=== PATIENT | male | born 1975 | race Caucasian/White ===

== ENCOUNTER → 2018-02-20 | Outpatient (CLI) | payer OTHER | END | disposition home or self-care (01) | LOC: CFH 13:56 | PROVIDERS: ATTEND Family Medicine | DX: N63.42 Unspecified lump in left breast, subareolar (principal) | CPT/HCPCS: 77066 ==

== ENCOUNTER → 2018-02-21 | Outpatient (CLI) | payer OTHER ==
[~2018-02-21] MED LIST: LIDOCAINE 1%, 50ML ONE; LIDOCAINE 1%-EPI 1:100K, 50ML ONE; SODIUM BICARBONATE 4.2%, 5ML ONE
== END | disposition home or self-care (01) ==
LOC: CFH 06:43
PROVIDERS: ATTEND Family Medicine
DX: D05.12 Intraductal carcinoma in situ of left breast (principal)
CPT/HCPCS: 10022; 19083; 77065; 88305; J3490

== ENCOUNTER → 2018-02-26 | Outpatient (CLI) | payer OTHER ==
[~2018-02-26] MED LIST changes: -LIDOCAINE 1%, 50ML ONE; -LIDOCAINE 1%-EPI 1:100K, 50ML ONE; +OMNIPAQUE 350 MG/ML, 100ML BOTTLE ONE; -SODIUM BICARBONATE 4.2%, 5ML ONE
== END | disposition home or self-care (01) ==
LOC: CFH 10:13
PROVIDERS: ATTEND Family Medicine
DX: C50.922 Malignant neoplasm of unspecified site of left male breast (principal); R91.8 Other nonspecific abnormal finding of lung field; Z85.3 Personal history of malignant neoplasm of breast; Z98.890 Other specified postprocedural states
CPT/HCPCS: 71260; 74177; Q9967

== ENCOUNTER → 2018-02-27 | Outpatient (CLI) | payer OTHER | END | disposition home or self-care (01) | LOC: PETCFH 09:06 | PROVIDERS: ATTEND Family Medicine | DX: C50.922 Malignant neoplasm of unspecified site of left male breast (principal); Z98.890 Other specified postprocedural states | CPT/HCPCS: 78306; A9503 ==

== ENCOUNTER → 2018-03-06 | Outpatient (CLI) | payer OTHER | LOC: STAR 08:27 | PROVIDERS: ATTEND Surgery | DX: Z02.9 Encounter for administrative examinations, unspecified (principal) ==

== ENCOUNTER → 2018-03-06 | Outpatient (CLI) | payer OTHER | END | disposition home or self-care (01) | LOC: LAB 15:00 | PROVIDERS: ATTEND Family Medicine | DX: Z09 Encounter for follow-up examination after completed treatment for conditions other than malignant neoplasm (principal) | CPT/HCPCS: 36415; 87806; G0475 ==

== ENCOUNTER 2018-03-10 08:26 | Day surgery (SDC) | payer OTHER ==
[~2018-03-10] VITALS: Ht 175.3 cm; Wt 124.3 kg
[2018-03-10] MEDS ORDERED: OxyconTIN ER 20 MG TAB.ER PO ONE (09:00)
[2018-03-10] MEDS ORDERED: ACETAMINOPHEN 500 MG TABLET PO ONE (09:00)
[2018-03-10] MEDS ORDERED: GABAPENTIN 300 MG CAPSULE PO ONE (09:00)
[2018-03-10] MEDS ORDERED: ONDANSETRON ODT 8 MG PO ONE (09:00)
[2018-03-10] MEDS ORDERED: LACTATED RINGERS 1,000 ML IV SCH (09:06)
[2018-03-10 09:09] VITALS: BP 126/87
[2018-03-10] MEDS ORDERED: KETOROLAC 30 MG/1 ML ONE (10:24)
[2018-03-10] MEDS ORDERED: CEFAZOLIN 1,000 MG ONE (10:24)
[2018-03-10] MEDS ORDERED: MIDAZOLAM 1 MG/ML, 5ML ONE (10:24)
[2018-03-10] MEDS ORDERED: PROPOFOL 10 MG/ML, 20ML ONE (10:24)
[2018-03-10] MEDS ORDERED: DEXAMETHASONE 4 MG/ML, 1ML ONE (10:24)
[2018-03-10] MEDS ORDERED: FENTANYL PF 100 MCG/2ML ONE (10:24)
[2018-03-10] MEDS ORDERED: SUCCINYLCHOLINE 20 MG/ML, 10ML ONE (10:24)
[2018-03-10] MEDS ORDERED: ROCURONIUM 10MG/ML,5ML ONE (10:24)
[2018-03-10] MEDS ORDERED: ONDANSETRON ODT 8 MG PO PRN (11:00)
[2018-03-10] MEDS ORDERED: MEPERIDINE/PF 25MG/0.5ML IVPush PRN (11:00)
[2018-03-10] MEDS ORDERED: hydrALAzine 20 MG/ML, 1ML IV PRN (11:00)
[2018-03-10] MEDS ORDERED: MORPHINE SULFATE 4 MG/ML, 1ML IVPush PRN (11:00)
[2018-03-10] MEDS ORDERED: DIAZEPAM 5 MG/ML, 2ML IVPush PRN (11:00)
[2018-03-10] MEDS ORDERED: PROMETHAZINE 25 MG/ML, 1ML IV PRN (11:00)
[2018-03-10] MEDS ORDERED: HYDROmorphone 1 MG/ML, 1ML IV PRN (11:00)
[2018-03-10] MEDS ORDERED: ALBUTEROL/IPRATROPIUM 2.5MG/0.5MG, 3 ML NPPB PRN (11:00)
[2018-03-10] MEDS ORDERED: FENTANYL PF 100 MCG/2ML IV PRN (11:00)
[2018-03-10] MEDS ORDERED: METOCLOPRAMIDE 5 MG/ML, 2ML IV PRN (11:00)
[2018-03-10] MEDS ORDERED: PROMETHAZINE 25 MG SUPP PR PRN (11:00)
[2018-03-10] MEDS ORDERED: SCOPOLAMINE PATCH, 1.5MG PATCH.TD72 TD PRN (11:00)
[2018-03-10] MEDS ORDERED: OXYcodone 5 MG/5 ML ORAL.SOL UDC PO PRN (11:00)
[2018-03-10] MEDS ORDERED: LABETALOL 5MG/ML, 20ML IV PRN (11:00)
[2018-03-10] MEDS ORDERED: MIDAZOLAM 1 MG/ML, 2ML IV PRN (11:00)
[2018-03-10] MEDS ORDERED: EPHEDRINE 50 MG/ML, 1ML IM PRN (11:00)
[2018-03-10] MEDS ORDERED: OXYcodone 5 MG/5 ML ORAL.SOL UDC ONE (12:01)
== END 2018-03-10 15:00 ==
LOC: OUT 08:26
PROVIDERS: ATTEND Surgery
DX: C50.922 Malignant neoplasm of unspecified site of left male breast (principal); E66.9 Obesity, unspecified; Z98.890 Other specified postprocedural states
CPT/HCPCS: 19307; 88305; 88307; C1729; J0330; J0690; J1100; J1885; J2250; J2405; J2704; J3010; J3490; J7120; Q0162

== ENCOUNTER → 2018-03-13 | Outpatient (CLI) | payer OTHER | END | disposition home or self-care (01) | LOC: LAB 08:58 | PROVIDERS: ATTEND Family Medicine | DX: Z11.3 Encounter for screening for infections with a predominantly sexual mode of transmission (principal) | CPT/HCPCS: 36415; 80074 ==

== ENCOUNTER → 2018-04-07 | Outpatient (CLI) | payer OTHER ==
[2018-04-07 15:18] LABS: BASOPHILS # (AUTO) 0.03 x10^3/uL (0-0.1); BASOPHILS % (AUTO) 1 % (0-1); EOSINOPHILS # (AUTO) 0.05 x10^3/uL (0-0.4); EOSINOPHILS % (AUTO) 1 % (1-7); LYMPHOCYTES # (AUTO) 1.67 x10^3/uL (1-3.4); LYMPHOCYTES % (AUTO) 32 % (22-44); MD NO; MEAN CORPUSCULAR HEMOGLOBIN 27.9 pg (27.5-34.5); MEAN CORPUSCULAR HGB CONC 33.8 g/dL (33.2-36.2); MEAN CORPUSCULAR VOLUME 82.6 fL (81-97); MEAN PLATELET VOLUME 6.9 fL (7.4-10.4); MONOCYTES # (AUTO) 0.26 x10^3/uL (0.2-0.8); MONOCYTES % (AUTO) 5 % (2-9); NEUTROPHILS # (AUTO) 3.19 x10^3/uL (1.8-6.8); NEUTROPHILS % (AUTO) 61 % (42-75); PLATELET COUNT 220 x10^3/uL (130-400); RED BLOOD COUNT 5.85 x10^6/uL (4.38-5.82); RED CELL DISTRIBUTION WIDTH 13.3 % (9.4-14.8)
[2018-04-07 15:24] LABS: ALANINE AMINOTRANSFERASE 39 U/L (12-78); ALBUMIN 4.1 g/dL (3.4-5.0); ANION GAP 7 mmol/L (5-15); CALCIUM 8.4 mg/dL (8.5-10.1); CHLORIDE 108 mmol/L (98-107)
[2018-04-07 15:27] LABS: ALKALINE PHOSPHATASE 72 U/L (45-117); BILIRUBIN,TOTAL 0.6 mg/dL (0.2-1.0); CREATININE 1.64 mg/dL (0.7-1.3); TOTAL PROTEIN 7.4 g/dL (6.4-8.2)
== END | disposition home or self-care (01) ==
LOC: LAB 14:48
PROVIDERS: ATTEND Internal Medicine Hematology & Oncology
DX: C50.422 Malignant neoplasm of upper-outer quadrant of left male breast (principal)
CPT/HCPCS: 36415; 80053; 85025; 86300

== ENCOUNTER → 2018-04-08 | Outpatient (CLI) | payer OTHER | END | disposition home or self-care (01) | LOC: CVU 11:58 | PROVIDERS: ATTEND Internal Medicine Hematology & Oncology | DX: C50.422 Malignant neoplasm of upper-outer quadrant of left male breast (principal) | CPT/HCPCS: 0399T; 93306 ==

== ENCOUNTER 2018-04-14 06:47 | Day surgery (SDC) | payer OTHER ==
[~2018-04-14] VITALS: Ht 175.3 cm; Wt 121.7 kg
[~2018-04-14 06:47] MED LIST changes: +BUPIVACAINE/PF-EPI 0.5% 1:200K ONE; +HEPARIN 1,000 UNITS/ML, 10ML ONE; -OMNIPAQUE 350 MG/ML, 100ML BOTTLE ONE
[2018-04-14] MEDS ORDERED: LACTATED RINGERS 1,000 ML IV SCH (07:07)
[2018-04-14 07:21] VITALS: BP 125/81
[2018-04-14] MEDS ORDERED: FENTANYL PF 100 MCG/2ML ONE (07:42)
[2018-04-14] MEDS ORDERED: MIDAZOLAM 1 MG/ML, 2ML ONE ×2 (07:43→08:34)
[2018-04-14] MEDS ORDERED: CEFAZOLIN 1,000 MG ONE (08:30)
[2018-04-14] MEDS ORDERED: PROPOFOL 10 MG/ML, 50ML ONE (08:30)
[2018-04-14] MEDS ORDERED: BUPIVACAINE/PF-EPI 0.5% 1:200K INFIL ONE (08:53)
== END 2018-04-14 10:31 ==
LOC: OUT 06:47
PROVIDERS: ATTEND Surgery
DX: Z45.2 Encounter for adjustment and management of vascular access device (principal); C50.929 Malignant neoplasm of unspecified site of unspecified male breast; E66.9 Obesity, unspecified; Z98.890 Other specified postprocedural states; Z88.0 Allergy status to penicillin
CPT/HCPCS: 36561; 77001; C1788; J0690; J1644; J2250; J2704; J3010; J7120

== ENCOUNTER → 2018-06-09 | Outpatient (CLI) | payer OTHER ==
[2018-06-09 12:34] LABS: ALBUMIN 3.8 g/dL (3.4-5.0); ANION GAP 6 mmol/L (5-15); CALCIUM 8.5 mg/dL (8.5-10.1); CHLORIDE 109 mmol/L (98-107)
[2018-06-09 12:38] LABS: ALANINE AMINOTRANSFERASE 41 U/L (12-78); ALKALINE PHOSPHATASE 107 U/L (45-117); BILIRUBIN,TOTAL 0.4 mg/dL (0.2-1.0); CREATININE 0.97 mg/dL (0.7-1.3); TOTAL PROTEIN 7.4 g/dL (6.4-8.2)
== END | disposition home or self-care (01) ==
LOC: LAB 12:10
PROVIDERS: ATTEND Internal Medicine Hematology & Oncology
DX: C50.422 Malignant neoplasm of upper-outer quadrant of left male breast (principal); D70.1 Agranulocytosis secondary to cancer chemotherapy; Z88.0 Allergy status to penicillin
CPT/HCPCS: 36415; 80053

== ENCOUNTER 2018-07-05 16:55 | Inpatient (IN) | payer OTHER ==
[~2018-07-05] VITALS: Ht 175.3 cm; Wt 118.3 kg
[2018-07-05] MEDS ORDERED: OMNIPAQUE 350 MG/ML, 100ML BOTTLE ONE (18:00)
[2018-07-05] MEDS ORDERED: SODIUM CHLORIDE FLUSH 10ML SYR IVF ONE ×2 (18:00→21:30)
[2018-07-05 18:30] LABS: MEAN CORPUSCULAR HEMOGLOBIN 29.3 pg (27.5-34.5); MEAN CORPUSCULAR HGB CONC 34.1 g/dL (33.2-36.2); MEAN CORPUSCULAR VOLUME 85.8 fL (81-97); MEAN PLATELET VOLUME 6.8 fL (7.4-10.4); PLATELET COUNT 226 x10^3/uL (130-400); RED BLOOD COUNT 3.88 x10^6/uL (4.38-5.82)
[2018-07-05 18:34] LABS: ALBUMIN 3.4 g/dL (3.4-5.0); ANION GAP 9 mmol/L (5-15); CHLORIDE 108 mmol/L (98-107); CREATININE 0.86 mg/dL (0.7-1.3)
[2018-07-05 18:46] LABS: MD YES
[2018-07-05 18:48] LABS: ANISOCYTOSIS 1+; BAND#(MANUAL) 1.24 x10^3/uL; BANDS%(MANUAL) 6 % (0-7); LYMPH#(MANUAL) 1.65 x10^3/uL (1-3.4); LYMPHS% (MANUAL) 8 % (22-44); MONOS#(MANUAL) 1.03 x10^3/uL (0.3-2.7); MONOS% (MANUAL) 5 % (2-9); MYELOCYTES# (MANUAL) 0.41 x10^3/uL (0-0); MYELOCYTES% (MANUAL) 2 % (0-0); SEG#(MANUAL) 16.27 x10^3/uL (1.8-6.8); SEGS% (MANUAL) 79 % (42-75)
[2018-07-05 18:49] LABS: POLYCHROMASIA 1+
[2018-07-05 18:51] LABS: <PLATELET ESTIMATE> ADEQUATE; <PLT MORPHOLOGY> NORMAL PLT MORPH; TOXIC GRAN 1+
[2018-07-05] MEDS ORDERED: SODIUM CHLORIDE 0.9% 1,000ML IVBOLUS ONE (21:30)
[2018-07-05] MEDS ORDERED: VANCOMYCIN PER PHARMACY MC ONE (21:30)
[2018-07-05] MEDS ORDERED: PIPERACILLIN/TAZO/PMX 3.375GM 50 ML IVPB ONE (21:30)
[2018-07-05] MEDS ORDERED: PHARMACOKINETIC CONSULTATION MC ONE (21:30)
[2018-07-05] MEDS ORDERED: VANCOMYCIN 2,000 MG in SODIUM CHLORIDE 0.9% 500 ML IV ONE (22:00)
[2018-07-05] MEDS ORDERED: PIPERACILLIN/TAZO/PMX 3.375GM 50 ML ONE (22:00)
[2018-07-05] MEDS ORDERED: NS + 20MEQ KCL 1,000 ML IV SCH (22:16)
[2018-07-05] MEDS: PIPERACILLIN/TAZO/PMX 3.375GM 50 ML IV SCH (22:30)
[2018-07-05] MEDS ORDERED: VANCOMYCIN PER PHARMACY MC PRN (22:30)
[2018-07-05] MEDS ORDERED: ACETAMINOPHEN 325 MG TABLET PO PRN (22:30)
[2018-07-05] MEDS ORDERED: HEPARIN 5,000 UNITS/ML, 1ML IV PRN (22:30)
[2018-07-05] MEDS ORDERED: DOCUSATE 100 MG CAPSULE PO PRN (22:30)
[2018-07-05] MEDS ORDERED: morphine SULFATE 10 MG/ML, 1ML IVPush PRN (22:30)
[2018-07-05] MEDS ORDERED: HEPARIN 5,000 UNITS/ML, 1ML IV ONE (22:30)
[2018-07-05] MEDS ORDERED: POLYETHYLENE GLYCOL 17 GM PACKET PO PRN (22:30)
[2018-07-05] MEDS ORDERED: ONDANSETRON 2MG/ML, 2ML IVPush PRN (22:30)
[2018-07-05] MEDS ORDERED: HYDROcodone/APAP 5/325 TABLET PO PRN (22:30)
[2018-07-05] MEDS ORDERED: HEPARIN 25,000 UNITS/500ML PMX 500 ML IV PRN (22:30)
[2018-07-05 23:51] VITALS: BP 151/93
[2018-07-06] MEDS ORDERED: PHARMACOKINETIC CONSULTATION MC ONE (00:30)
[2018-07-06] MEDS ORDERED: PHARMACOKINETIC MONITORING MC PRN (00:30)
[2018-07-06] MEDS ORDERED: VANCOMYCIN 2,200 MG in SODIUM CHLORIDE 0.9% 500 ML IV SCH (00:30)
[2018-07-06 01:52] VITALS: BP 118/95
[2018-07-06 05:20] LABS: BASOPHILS % (AUTO) 0 % (0-1); EOSINOPHILS # (AUTO) 0.02 x10^3/uL (0-0.4); EOSINOPHILS % (AUTO) 0 % (1-7); LYMPHOCYTES # (AUTO) 1.11 x10^3/uL (1-3.4); LYMPHOCYTES % (AUTO) 7 % (22-44); MD NO; MEAN CORPUSCULAR HEMOGLOBIN 29.5 pg (27.5-34.5); MEAN CORPUSCULAR VOLUME 86.6 fL (81-97); MONOCYTES # (AUTO) 0.59 x10^3/uL (0.2-0.8); MONOCYTES % (AUTO) 4 % (2-9); NEUTROPHILS # (AUTO) 14.79 x10^3/uL (1.8-6.8); NEUTROPHILS % (AUTO) 90 % (42-75); PLATELET COUNT 184 x10^3/uL (130-400); RED BLOOD COUNT 3.45 x10^6/uL (4.38-5.82)
[2018-07-06 05:35] LABS: ANION GAP 8 mmol/L (5-15); CALCIUM 7.6 mg/dL (8.5-10.1); CHLORIDE 111 mmol/L (98-107); CREATININE 0.84 mg/dL (0.7-1.3)
[2018-07-06] MEDS: PIPERACILLIN/TAZO/PMX 3.375GM 50 ML IV SCH (05:42)
[2018-07-06 07:12] VITALS: BP 124/66
[2018-07-06] MEDS: IBUPROFEN 600 MG TABLET PO PRN ×2 (08:50→19:53)
[2018-07-06 10:25] LABS: CLOSTRIDIUM DIFFICILE ANTIGEN POSITIVE; CLOSTRIDIUM DIFFICILE TOXIN POSITIVE (Negative)
[2018-07-06 12:04] VITALS: BP 138/70
[2018-07-06] MEDS: VANCOMYCIN 50 MG/ML ORAL SUSP PO SCH ×2 (12:05→16:48)
[2018-07-06] MEDS: ENOXAPARIN 120MG/0.8ML SQ SCH (14:16)
[2018-07-06 19:21] VITALS: BP 111/68
[2018-07-07] MEDS: ENOXAPARIN 120MG/0.8ML SQ SCH ×2 (00:49→11:51)
[2018-07-07] MEDS: VANCOMYCIN 50 MG/ML ORAL SUSP PO SCH ×4 (00:50→16:57)
[2018-07-07 00:51] VITALS: BP 123/72
[2018-07-07 05:20] LABS: BASOPHILS # (AUTO) 0.01 x10^3/uL (0-0.1); BASOPHILS % (AUTO) 0 % (0-1); EOSINOPHILS # (AUTO) 0.05 x10^3/uL (0-0.4); EOSINOPHILS % (AUTO) 1 % (1-7); LYMPHOCYTES # (AUTO) 0.97 x10^3/uL (1-3.4); LYMPHOCYTES % (AUTO) 9 % (22-44); MD NO; MEAN CORPUSCULAR HEMOGLOBIN 29.7 pg (27.5-34.5); MEAN CORPUSCULAR HGB CONC 34.4 g/dL (33.2-36.2); MEAN CORPUSCULAR VOLUME 86.4 fL (81-97); MEAN PLATELET VOLUME 6.8 fL (7.4-10.4); MONOCYTES # (AUTO) 0.44 x10^3/uL (0.2-0.8); MONOCYTES % (AUTO) 4 % (2-9); NEUTROPHILS # (AUTO) 8.86 x10^3/uL (1.8-6.8); NEUTROPHILS % (AUTO) 86 % (42-75); PLATELET COUNT 171 x10^3/uL (130-400); RED BLOOD COUNT 3.27 x10^6/uL (4.38-5.82); RED CELL DISTRIBUTION WIDTH 18.6 % (9.4-14.8)
[2018-07-07 05:28] LABS: ALBUMIN 2.7 g/dL (3.4-5.0); ANION GAP 8 mmol/L (5-15); CALCIUM 7.9 mg/dL (8.5-10.1); CHLORIDE 111 mmol/L (98-107)
[2018-07-07 05:32] LABS: ALANINE AMINOTRANSFERASE 40 U/L (12-78); ALKALINE PHOSPHATASE 95 U/L (45-117); BILIRUBIN,TOTAL 0.5 mg/dL (0.2-1.0); CREATININE 0.75 mg/dL (0.7-1.3); TOTAL PROTEIN 5.8 g/dL (6.4-8.2)
[2018-07-07 07:42] VITALS: BP 130/70
[2018-07-07] MEDS ORDERED: POTASSIUM CHLORIDE 20 MEQ TAB.ER.PRT PO ONE ×2 (08:00→11:30)
[2018-07-07 12:22] VITALS: BP 135/77
[2018-07-07] MEDS: IBUPROFEN 600 MG TABLET PO PRN (16:59)
[2018-07-07 19:51] VITALS: BP 121/73
[2018-07-08] MEDS: VANCOMYCIN 50 MG/ML ORAL SUSP PO SCH ×3 (00:54→12:51)
[2018-07-08] MEDS: ENOXAPARIN 120MG/0.8ML SQ SCH ×2 (00:54→12:52)
[2018-07-08 00:55] VITALS: BP 110/64
[2018-07-08 07:25] VITALS: BP 114/78
[2018-07-08 11:07] LABS: ALBUMIN 3.2 g/dL (3.4-5.0); ANION GAP 5 mmol/L (5-15); CALCIUM 7.9 mg/dL (8.5-10.1); CHLORIDE 112 mmol/L (98-107); CREATININE 0.84 mg/dL (0.7-1.3)
[2018-07-08 11:16] LABS: BASOPHILS % (AUTO) 0 % (0-1); EOSINOPHILS # (AUTO) 0.06 x10^3/uL (0-0.4); EOSINOPHILS % (AUTO) 1 % (1-7); LYMPHOCYTES # (AUTO) 0.98 x10^3/uL (1-3.4); LYMPHOCYTES % (AUTO) 9 % (22-44); MD NO; MEAN CORPUSCULAR HEMOGLOBIN 29.6 pg (27.5-34.5); MEAN CORPUSCULAR HGB CONC 34.2 g/dL (33.2-36.2); MEAN CORPUSCULAR VOLUME 86.4 fL (81-97); MEAN PLATELET VOLUME 6.8 fL (7.4-10.4); MONOCYTES # (AUTO) 0.46 x10^3/uL (0.2-0.8); MONOCYTES % (AUTO) 4 % (2-9); NEUTROPHILS # (AUTO) 9.42 x10^3/uL (1.8-6.8); NEUTROPHILS % (AUTO) 86 % (42-75); PLATELET COUNT 232 x10^3/uL (130-400); RED BLOOD COUNT 3.66 x10^6/uL (4.38-5.82); RED CELL DISTRIBUTION WIDTH 18.5 % (9.4-14.8)
[2018-07-08 13:27] VITALS: BP 118/71
[2018-07-08] MEDS ORDERED: VANC1VIA3 PO (13:49)
[2018-07-08] MEDS ORDERED: ENOX60SY4 SC (13:49)
== END 2018-07-08 15:32 | disposition home or self-care (01) | DRG 872 ==
LOC: ED 18:24 → EDIP 22:00 → SUATTDRO 22:04 → 3NW 23:49
PROVIDERS: ADMIT Family Medicine; ATTEND Family Medicine
DX: A41.9 Sepsis, unspecified organism (principal); A04.72 Enterocolitis due to Clostridium difficile, not specified as recurrent; I82.C11 Acute embolism and thrombosis of right internal jugular vein; I82.B11 Acute embolism and thrombosis of right subclavian vein; C50.929 Malignant neoplasm of unspecified site of unspecified male breast; D64.9 Anemia, unspecified; E87.6 Hypokalemia; R22.1 Localized swelling, mass and lump, neck; M54.2 Cervicalgia; R13.10 Dysphagia, unspecified; Z83.3 Family history of diabetes mellitus; Z90.13 Acquired absence of bilateral breasts and nipples; Z92.21 Personal history of antineoplastic chemotherapy; Z79.899 Other long term (current) drug therapy
CPT/HCPCS: 36415; 36569; 84145; 99285; J3370; 70491; 71275; 80048; 80053; 82040; 83605; 83735; 84100; 85025; 85520; 87040; 87324; 93970; G0378; J1644; J1650; J2543; J3480; Q9967; J7030; J7040

== ENCOUNTER → 2018-07-13 | Outpatient (CLI) | payer OTHER ==
[~2018-07-13] MED LIST changes: -BUPIVACAINE/PF-EPI 0.5% 1:200K ONE; +ENOX60SY4 SC; -HEPARIN 1,000 UNITS/ML, 10ML ONE; +VANC1VIA3 PO
== END | disposition home or self-care (01) ==
LOC: LAB 16:49
PROVIDERS: ATTEND Internal Medicine Hematology & Oncology
DX: C50.422 Malignant neoplasm of upper-outer quadrant of left male breast (principal); D70.1 Agranulocytosis secondary to cancer chemotherapy; G89.3 Neoplasm related pain (acute) (chronic)
CPT/HCPCS: 36415; 85520

== ENCOUNTER → 2018-07-21 | Outpatient (CLI) | payer OTHER | END | disposition home or self-care (01) | LOC: LAB 08:14 | PROVIDERS: ATTEND Internal Medicine Hematology & Oncology | DX: C50.422 Malignant neoplasm of upper-outer quadrant of left male breast (principal); D70.1 Agranulocytosis secondary to cancer chemotherapy; G89.3 Neoplasm related pain (acute) (chronic) | CPT/HCPCS: 36415; 85520 ==

== ENCOUNTER → 2018-07-23 | Outpatient (CLI) | payer OTHER ==
[2018-07-23 10:32] LABS: ALBUMIN 3.7 g/dL (3.4-5.0); ANION GAP 8 mmol/L (5-15); CALCIUM 8.3 mg/dL (8.5-10.1); CHLORIDE 110 mmol/L (98-107)
[2018-07-23 10:35] LABS: ALANINE AMINOTRANSFERASE 119 U/L (12-78); ALKALINE PHOSPHATASE 94 U/L (45-117); BILIRUBIN,TOTAL 0.4 mg/dL (0.2-1.0); CREATININE 0.86 mg/dL (0.7-1.3); TOTAL PROTEIN 7.1 g/dL (6.4-8.2)
== END | disposition home or self-care (01) ==
LOC: LAB 10:06
PROVIDERS: ATTEND Internal Medicine Hematology & Oncology
DX: C50.422 Malignant neoplasm of upper-outer quadrant of left male breast (principal); D70.1 Agranulocytosis secondary to cancer chemotherapy; G89.3 Neoplasm related pain (acute) (chronic); L03.311 Cellulitis of abdominal wall
CPT/HCPCS: 36415; 80053

== ENCOUNTER → 2018-07-24 | Outpatient (CLI) | payer OTHER | END | disposition home or self-care (01) | LOC: EDSTATUS 11:15 → CFH 11:17 | PROVIDERS: ATTEND Internal Medicine Hematology & Oncology | DX: I82.C11 Acute embolism and thrombosis of right internal jugular vein (principal); I82.629 Acute embolism and thrombosis of deep veins of unspecified upper extremity; C50.422 Malignant neoplasm of upper-outer quadrant of left male breast ==

== ENCOUNTER → 2018-07-28 | Outpatient (CLI) | payer OTHER | END | disposition home or self-care (01) | LOC: LAB 11:40 | PROVIDERS: ATTEND Internal Medicine Hematology & Oncology | DX: C50.422 Malignant neoplasm of upper-outer quadrant of left male breast (principal); D70.1 Agranulocytosis secondary to cancer chemotherapy; G89.3 Neoplasm related pain (acute) (chronic) | CPT/HCPCS: 36415; 85520 ==

== ENCOUNTER → 2018-07-30 | Outpatient (CLI) | payer OTHER | END | disposition home or self-care (01) | LOC: ROC 07:18 | PROVIDERS: ATTEND Radiology Radiation Oncology | DX: C50.422 Malignant neoplasm of upper-outer quadrant of left male breast (principal); Z88.0 Allergy status to penicillin; Z88.1 Allergy status to other antibiotic agents | CPT/HCPCS: 99214; G0463 ==

== ENCOUNTER → 2018-09-11 | Outpatient (CLI) | payer OTHER | END | disposition home or self-care (01) | LOC: CFH 08:50 → EDSTATUS 09:00 | PROVIDERS: ATTEND Internal Medicine Hematology & Oncology | DX: M79.89 Other specified soft tissue disorders (principal); R60.0 Localized edema; C50.422 Malignant neoplasm of upper-outer quadrant of left male breast ==

== ENCOUNTER → 2018-09-22 | Outpatient (CLI) | payer OTHER ==
[~2018-09-22] MED LIST changes: +OMNIPAQUE 350 MG/ML, 100ML BOTTLE ONE
== END | disposition home or self-care (01) ==
LOC: RAD 14:30
PROVIDERS: ATTEND Internal Medicine Hematology & Oncology
DX: I82.C11 Acute embolism and thrombosis of right internal jugular vein (principal); I82.621 Acute embolism and thrombosis of deep veins of right upper extremity; C50.422 Malignant neoplasm of upper-outer quadrant of left male breast
CPT/HCPCS: 71275; 93971; Q9967

== ENCOUNTER 2018-10-13 15:01 | Outpatient (CLI) | payer OTHER ==
[~2018-10-13 15:01] MED LIST changes: -OMNIPAQUE 350 MG/ML, 100ML BOTTLE ONE
[2018-10-13 17:17] LABS: BASOPHILS # (AUTO) 0.02 x10^3/uL (0-0.1); BASOPHILS % (AUTO) 0 % (0-1); EOSINOPHILS # (AUTO) 0.03 x10^3/uL (0-0.4); EOSINOPHILS % (AUTO) 1 % (1-7); LYMPHOCYTES # (AUTO) 0.86 x10^3/uL (1-3.4); LYMPHOCYTES % (AUTO) 22 % (22-44); MD NO; MEAN CORPUSCULAR HEMOGLOBIN 27.5 pg (27.5-34.5); MEAN CORPUSCULAR HGB CONC 34.2 g/dL (33.2-36.2); MEAN CORPUSCULAR VOLUME 80.5 fL (81-97); MEAN PLATELET VOLUME 6.4 fL (7.4-10.4); MONOCYTES # (AUTO) 0.31 x10^3/uL (0.2-0.8); MONOCYTES % (AUTO) 8 % (2-9); NEUTROPHILS # (AUTO) 2.71 x10^3/uL (1.8-6.8); NEUTROPHILS % (AUTO) 69 % (42-75); PLATELET COUNT 184 x10^3/uL (130-400); RED BLOOD COUNT 5.46 x10^6/uL (4.38-5.82); RED CELL DISTRIBUTION WIDTH 14.9 % (9.4-14.8)
[2018-10-13 17:29] LABS: ALANINE AMINOTRANSFERASE 40 U/L (12-78); ALBUMIN 4.2 g/dL (3.4-5.0); ANION GAP 6 mmol/L (5-15); CALCIUM 8.8 mg/dL (8.5-10.1); CHLORIDE 108 mmol/L (98-107); CREATININE 1.06 mg/dL (0.7-1.3)
[2018-10-13 17:31] LABS: ALKALINE PHOSPHATASE 84 U/L (45-117); BILIRUBIN,TOTAL 0.4 mg/dL (0.2-1.0); TOTAL PROTEIN 7.6 g/dL (6.4-8.2)
== END 2018-10-13 23:59 | disposition home or self-care (01) ==
LOC: LAB 15:01
PROVIDERS: ATTEND Internal Medicine Hematology & Oncology
DX: Z51.11 Encounter for antineoplastic chemotherapy (principal); C50.422 Malignant neoplasm of upper-outer quadrant of left male breast; D70.1 Agranulocytosis secondary to cancer chemotherapy; L03.311 Cellulitis of abdominal wall; I82.629 Acute embolism and thrombosis of deep veins of unspecified upper extremity; G89.3 Neoplasm related pain (acute) (chronic); Z85.3 Personal history of malignant neoplasm of breast
CPT/HCPCS: 36415; 80053; 81240; 81241; 85025; 85300; 85301; 85302; 85303; 85305; 85306; 86146; 86147

== ENCOUNTER → 2018-10-29 | Outpatient (CLI) | payer OTHER | END | disposition home or self-care (01) | LOC: EDSTATUS 10-25 14:34 → ROC 08:35 | PROVIDERS: ATTEND Radiology Radiation Oncology | DX: Z08 Encounter for follow-up examination after completed treatment for malignant neoplasm (principal); C50.422 Malignant neoplasm of upper-outer quadrant of left male breast | CPT/HCPCS: 99213; G0463 ==

== ENCOUNTER → 2018-11-04 | Outpatient (CLI) | payer OTHER | END | disposition home or self-care (01) | LOC: CFH 10:51 → EDSTATUS 11:15 | PROVIDERS: ATTEND Radiology Radiation Oncology | DX: C50.422 Malignant neoplasm of upper-outer quadrant of left male breast (principal) | CPT/HCPCS: 76604 ==

== ENCOUNTER → 2019-01-14 | Outpatient (CLI) | payer OTHER | END | disposition home or self-care (01) | LOC: CFH 15:19 | PROVIDERS: ATTEND Internal Medicine Hematology & Oncology | DX: I82.601 Acute embolism and thrombosis of unspecified veins of right upper extremity (principal); C50.422 Malignant neoplasm of upper-outer quadrant of left male breast ==

== ENCOUNTER → 2019-01-15 | Outpatient (CLI) | payer OTHER | END | disposition home or self-care (01) | LOC: LAB 09:24 | PROVIDERS: ATTEND Internal Medicine Hematology & Oncology | DX: Z51.11 Encounter for antineoplastic chemotherapy (principal); C50.422 Malignant neoplasm of upper-outer quadrant of left male breast; D70.1 Agranulocytosis secondary to cancer chemotherapy; G89.3 Neoplasm related pain (acute) (chronic); L03.311 Cellulitis of abdominal wall; I82.629 Acute embolism and thrombosis of deep veins of unspecified upper extremity | CPT/HCPCS: 36415; 85379 ==

== ENCOUNTER → 2019-02-19 | Outpatient (CLI) | payer OTHER ==
[~2019-02-19] MED LIST changes: +OMNIPAQUE 350 MG/ML, 150 ML BOTTLE ONE
== END | disposition home or self-care (01) ==
LOC: EDSTATUS 14:00 → CFH 14:22
PROVIDERS: ATTEND Internal Medicine Hematology & Oncology
DX: C50.422 Malignant neoplasm of upper-outer quadrant of left male breast (principal); J98.11 Atelectasis; R91.8 Other nonspecific abnormal finding of lung field; N62 Hypertrophy of breast; M47.814 Spondylosis without myelopathy or radiculopathy, thoracic region; M85.88 Other specified disorders of bone density and structure, other site; K76.0 Fatty (change of) liver, not elsewhere classified
CPT/HCPCS: 70491; 71260; Q9967

== ENCOUNTER → 2019-03-05 | Outpatient (CLI) | payer OTHER ==
[~2019-03-05] MED LIST changes: -OMNIPAQUE 350 MG/ML, 150 ML BOTTLE ONE
[2019-03-05 12:23] LABS: ALANINE AMINOTRANSFERASE 39 U/L (12-78); ALBUMIN 3.9 g/dL (3.4-5.0); ANION GAP 6 mmol/L (5-15); CALCIUM 8.3 mg/dL (8.5-10.1); CHLORIDE 110 mmol/L (98-107)
[2019-03-05 12:25] LABS: ALKALINE PHOSPHATASE 62 U/L (45-117); BILIRUBIN,TOTAL 0.6 mg/dL (0.2-1.0); TOTAL PROTEIN 7.3 g/dL (6.4-8.2)
[2019-03-06 12:31] LABS: EOSINOPHILS # (AUTO) 0.02 x10^3/uL (0-0.4); MD NO; MEAN CORPUSCULAR HGB CONC 33.4 g/dL (33.2-36.2); MONOCYTES # (AUTO) 0.21 x10^3/uL (0.2-0.8); MONOCYTES % (AUTO) 6 % (2-9)
[2019-03-06 12:43] LABS: BASOPHILS # (AUTO) 0.01 x10^3/uL (0-0.1); BASOPHILS % (AUTO) 0 % (0-1); EOSINOPHILS % (AUTO) 1 % (1-7); LYMPHOCYTES # (AUTO) 1.13 x10^3/uL (1-3.4); LYMPHOCYTES % (AUTO) 32 % (22-44); MEAN CORPUSCULAR HEMOGLOBIN 27.6 pg (27.5-34.5); MEAN CORPUSCULAR VOLUME 82.8 fL (81-97); MEAN PLATELET VOLUME 6.3 fL (7.4-10.4); NEUTROPHILS # (AUTO) 2.21 x10^3/uL (1.8-6.8); NEUTROPHILS % (AUTO) 62 % (42-75); PLATELET COUNT 160 x10^3/uL (130-400); RED BLOOD COUNT 5.68 x10^6/uL (4.38-5.82); RED CELL DISTRIBUTION WIDTH 14.5 % (9.4-14.8)
== END | disposition home or self-care (01) ==
LOC: LAB 11:38
PROVIDERS: ATTEND Internal Medicine Hematology & Oncology
DX: C50.422 Malignant neoplasm of upper-outer quadrant of left male breast (principal); D70.1 Agranulocytosis secondary to cancer chemotherapy; G89.3 Neoplasm related pain (acute) (chronic); Z51.11 Encounter for antineoplastic chemotherapy; L03.311 Cellulitis of abdominal wall; I82.629 Acute embolism and thrombosis of deep veins of unspecified upper extremity
CPT/HCPCS: 36415; 80053; 85025

== ENCOUNTER → 2019-03-05 | Outpatient (CLI) | payer OTHER | END | disposition home or self-care (01) | LOC: CFH 09:13 | PROVIDERS: ATTEND Internal Medicine Hematology & Oncology | DX: Z12.31 Encounter for screening mammogram for malignant neoplasm of breast (principal); I82.C11 Acute embolism and thrombosis of right internal jugular vein; C50.422 Malignant neoplasm of upper-outer quadrant of left male breast | CPT/HCPCS: 77067 ==

== ENCOUNTER 2019-09-11 15:29 | Outpatient (CLI) | payer OTHER | END 2019-09-11 23:59 | disposition home or self-care (01) | LOC: CFH 15:29 | PROVIDERS: ATTEND Family Medicine | DX: R05 Cough (principal) | CPT/HCPCS: 71046 ==

== ENCOUNTER 2019-10-01 10:55 | Outpatient (CLI) | payer OTHER ==
[2019-10-01 11:10] LABS: BASOPHILS # (AUTO) 0.04 x10^3/uL (0-0.1); BASOPHILS % (AUTO) 1 % (0-1); EOSINOPHILS # (AUTO) 0.04 x10^3/uL (0-0.4); EOSINOPHILS % (AUTO) 1 % (1-7); LYMPHOCYTES # (AUTO) 1.56 x10^3/uL (1-3.4); LYMPHOCYTES % (AUTO) 35 % (22-44); MD NO; MEAN CORPUSCULAR HEMOGLOBIN 28.4 pg (27.5-34.5); MEAN CORPUSCULAR HGB CONC 33.5 g/dL (33.2-36.2); MEAN CORPUSCULAR VOLUME 84.7 fL (81-97); MEAN PLATELET VOLUME 6.4 fL (7.4-10.4); MONOCYTES # (AUTO) 0.26 x10^3/uL (0.2-0.8); MONOCYTES % (AUTO) 6 % (2-9); NEUTROPHILS # (AUTO) 2.51 x10^3/uL (1.8-6.8); NEUTROPHILS % (AUTO) 57 % (42-75); PLATELET COUNT 171 x10^3/uL (130-400); RED BLOOD COUNT 5.62 x10^6/uL (4.38-5.82)
[2019-10-01 13:03] LABS: ALANINE AMINOTRANSFERASE 56 U/L (12-78); ALBUMIN 3.9 g/dL (3.4-5.0); ANION GAP 6 mmol/L (5-15); CALCIUM 8.4 mg/dL (8.5-10.1); CHLORIDE 109 mmol/L (98-107)
[2019-10-01 13:15] LABS: ALKALINE PHOSPHATASE 67 U/L (45-117); BILIRUBIN,TOTAL 0.6 mg/dL (0.2-1.0); CHOLESTEROL, TOTAL 173 mg/dL (140-239); CREATININE 1.05 mg/dL (0.7-1.3); HDL CHOL % 17 % (26-37); HDL CHOLESTEROL (DIRECT) 29 mg/dL (40-60); LDL CHOLESTEROL,CALCULATED 117 mg/dL (54-169); TOTAL PROTEIN 7.6 g/dL (6.4-8.2); TRIGLYCERIDES 137 mg/dL (50-200); VLDL CHOLESTEROL 27 mg/dL (0-25)
== END 2019-10-01 23:59 | disposition home or self-care (01) ==
LOC: LAB 10:55
PROVIDERS: ATTEND Family Medicine
DX: Z13.1 Encounter for screening for diabetes mellitus (principal); Z13.220 Encounter for screening for lipoid disorders; R53.83 Other fatigue; Z79.899 Other long term (current) drug therapy
CPT/HCPCS: 36415; 80053; 80061; 83036; 84443; 85025

== ENCOUNTER 2019-10-09 14:42 | Outpatient (CLI) | payer OTHER | END 2019-10-09 23:59 | disposition home or self-care (01) | LOC: CFH 14:42 | PROVIDERS: ATTEND Pediatrics Pediatric Rheumatology | DX: E07.9 Disorder of thyroid, unspecified (principal) | CPT/HCPCS: 76536 ==

== ENCOUNTER → 2019-10-27 | Outpatient (CLI) | payer OTHER ==
[2019-10-27 13:21] LABS: T4 (THYROXINE) 7.5 mcg/dL (4.5-12.1)
== END | disposition home or self-care (01) ==
LOC: LAB 12:56
PROVIDERS: ATTEND Family Medicine
DX: E07.9 Disorder of thyroid, unspecified (principal); E83.51 Hypocalcemia
CPT/HCPCS: 36415; 82306; 83970; 84436; 84443; 84479

== ENCOUNTER → 2019-11-04 | Outpatient (CLI) | payer OTHER ==
[~2019-11-04] MED LIST changes: +OMNIPAQUE 350 MG/ML, 75ML BOTTLE ONE
== END | disposition home or self-care (01) ==
LOC: CFH 10:07
PROVIDERS: ATTEND Internal Medicine Hematology & Oncology
DX: C50.422 Malignant neoplasm of upper-outer quadrant of left male breast (principal); R91.1 Solitary pulmonary nodule; M89.9 Disorder of bone, unspecified
CPT/HCPCS: 71260; Q9967

== ENCOUNTER → 2020-01-19 | Outpatient (CLI) | payer OTHER ==
[~2020-01-19] MED LIST changes: -OMNIPAQUE 350 MG/ML, 75ML BOTTLE ONE
== END | disposition home or self-care (01) ==
LOC: CFH 08:20
PROVIDERS: ATTEND Orthopaedic Surgery
DX: M47.814 Spondylosis without myelopathy or radiculopathy, thoracic region (principal); M25.78 Osteophyte, vertebrae; M48.04 Spinal stenosis, thoracic region
CPT/HCPCS: 72072

== ENCOUNTER → 2020-02-08 | Outpatient (CLI) | payer OTHER ==
[~2020-02-08] MED LIST changes: +GADOTERATE 10 MMOL/20 ML SYR ONE; +GADOTERATE 5 MMOL/10 ML VIAL ONE
== END | disposition home or self-care (01) ==
LOC: CFH 07:43 → EDSTATUS 07:45
PROVIDERS: ATTEND Physician Assistant Surgical
DX: M51.24 Other intervertebral disc displacement, thoracic region (principal); M47.814 Spondylosis without myelopathy or radiculopathy, thoracic region; Z85.3 Personal history of malignant neoplasm of breast
CPT/HCPCS: 72157; A9575

== ENCOUNTER 2020-03-11 11:53 | Outpatient (CLI) | payer OTHER ==
[~2020-03-11 11:53] MED LIST changes: -GADOTERATE 10 MMOL/20 ML SYR ONE; -GADOTERATE 5 MMOL/10 ML VIAL ONE
[2020-03-11 12:38] LABS: ALANINE AMINOTRANSFERASE 61 U/L (12-78); ALBUMIN 4.2 g/dL (3.4-5.0); ANION GAP 5 mmol/L (5-15); CALCIUM 8.3 mg/dL (8.5-10.1); CHLORIDE 108 mmol/L (98-107); CREATININE 1.09 mg/dL (0.7-1.3)
[2020-03-11 12:48] LABS: ALKALINE PHOSPHATASE 72 U/L (45-117); BILIRUBIN,TOTAL 0.6 mg/dL (0.2-1.0); TOTAL PROTEIN 7.8 g/dL (6.4-8.2)
== END 2020-03-11 23:59 | disposition home or self-care (01) ==
LOC: LAB 11:53
PROVIDERS: ATTEND Family Medicine
DX: E03.9 Hypothyroidism, unspecified (principal); E55.9 Vitamin D deficiency, unspecified; E21.3 Hyperparathyroidism, unspecified
CPT/HCPCS: 36415; 80053; 82306; 83970; 84443

== ENCOUNTER → 2020-03-29 | Outpatient (CLI) | payer OTHER | END | disposition home or self-care (01) | LOC: CFH 10:47 | PROVIDERS: ATTEND Internal Medicine Hematology & Oncology | DX: Z12.31 Encounter for screening mammogram for malignant neoplasm of breast (principal); Z85.3 Personal history of malignant neoplasm of breast; Z90.12 Acquired absence of left breast and nipple | CPT/HCPCS: 77067 ==

== ENCOUNTER → 2020-11-15 | Outpatient (CLI) | payer OTHER ==
[2020-11-15 14:32] LABS: ALANINE AMINOTRANSFERASE 55 U/L (12-78); ALBUMIN 4.1 g/dL (3.4-5.0); ANION GAP 7 mmol/L (5-15); CALCIUM 8.2 mg/dL (8.5-10.1); CHLORIDE 107 mmol/L (98-107); CREATININE 1.22 mg/dL (0.7-1.3)
[2020-11-15 14:59] LABS: ALKALINE PHOSPHATASE 80 U/L (45-117); BILIRUBIN,TOTAL 0.7 mg/dL (0.2-1.0); TOTAL PROTEIN 7.4 g/dL (6.4-8.2)
[2020-11-15 15:00] LABS: BASOPHILS % (AUTO) 1 % (0-1); EOSINOPHILS % (AUTO) 1 % (1-7); LYMPHOCYTES % (AUTO) 37 % (22-44); MEAN CORPUSCULAR HEMOGLOBIN 28.5 pg (27.5-34.5); MEAN CORPUSCULAR HGB CONC 34.3 g/dL (33.2-36.2); MEAN PLATELET VOLUME 6.8 fL (7.4-10.4); MONOCYTES % (AUTO) 7 % (2-9); NEUTROPHILS % (AUTO) 55 % (42-75); PLATELET COUNT 154 x10^3/uL (130-400); RED BLOOD COUNT 5.55 x10^6/uL (4.38-5.82); RED CELL DISTRIBUTION WIDTH 13.5 % (9.4-14.8)
[2020-11-15 15:08] LABS: MD NO
== END | disposition home or self-care (01) ==
LOC: LAB 14:06
PROVIDERS: ATTEND Internal Medicine Hematology & Oncology
DX: Z51.11 Encounter for antineoplastic chemotherapy (principal); C50.422 Malignant neoplasm of upper-outer quadrant of left male breast; D70.1 Agranulocytosis secondary to cancer chemotherapy; G89.3 Neoplasm related pain (acute) (chronic); L03.311 Cellulitis of abdominal wall; I82.629 Acute embolism and thrombosis of deep veins of unspecified upper extremity
CPT/HCPCS: 36415; 80053; 82306; 85025

== ENCOUNTER → 2020-11-15 | Outpatient (CLI) | payer OTHER | END | disposition home or self-care (01) | LOC: CFH 12:05 | PROVIDERS: ATTEND Internal Medicine Hematology & Oncology | DX: C50.422 Malignant neoplasm of upper-outer quadrant of left male breast (principal) | CPT/HCPCS: 76642; 77061; 77065; G0279 ==

== ENCOUNTER 2021-02-05 17:31 | Emergency (ER) | payer OTHER ==
[~2021-02-05] VITALS: Ht 175.3 cm; Wt 98.5 kg
[~2021-02-05 17:31] MED LIST changes: -VANC1VIA3 PO; +VANC1VIA36 PO
--- NOTE | 2021-02-05 17:51 | NUR ---
HEAD OF DIGITAL: PT WALKED BACK FROM LOBBY TO ROOM AT THIS TIME. STEADY UPON AMBULATION.
--- NOTE | 2021-02-05 18:00 | NUR ---
PT AMBULATED TO ROOM FROM [facility]. PT CO BLOODY STOOL X2 DAYS. PT STATED THAT IT IS BRIGHT RED BLOOD. PT IS CURRENTLY ON XARALTO. PT STATED THAT HE WAS FEELING TIRED AND WEAK OVER THE PAST 2 DAYS ALSO. PT DENIES ANY N/V/D, ABDOMINAL PAIN OR FEVER.
[2021-02-05] MEDS ORDERED: SODIUM CHLORIDE FLUSH 10ML SYR IVF ONE (18:30)
--- NOTE | 2021-02-05 18:54 | NUR ---
REPORT TO MELITA TRAN
--- NOTE | 2021-02-05 18:59 | NUR ---
RECEIVED REPORT FROM TAYLER HUA TO ASSUME CARE.
[2021-02-05 19:09] LABS: BASOPHILS % (AUTO) 1 % (0-1); EOSINOPHILS % (AUTO) 0 % (1-7); LYMPHOCYTES % (AUTO) 35 % (22-44); MD NO; MEAN CORPUSCULAR HEMOGLOBIN 28.7 pg (27.5-34.5); MEAN CORPUSCULAR HGB CONC 34.5 g/dL (33.2-36.2); MEAN PLATELET VOLUME 6.9 fL (7.4-10.4); MONOCYTES % (AUTO) 6 % (2-9); NEUTROPHILS % (AUTO) 58 % (42-75); PLATELET COUNT 151 x10^3/uL (130-400); RED CELL DISTRIBUTION WIDTH 13.8 % (9.4-14.8)
[2021-02-05 19:11] LABS: ALBUMIN 4.1 g/dL (3.4-5.0); ANION GAP 7 mmol/L (5-15); CALCIUM 8.2 mg/dL (8.5-10.1); CHLORIDE 109 mmol/L (98-107)
[2021-02-05 19:12] LABS: CREATININE 1.09 mg/dL (0.7-1.3)
[2021-02-05 19:16] LABS: PROTHROMBIN TIME 10.7 Seconds (9.6-11.5)
--- NOTE | 2021-02-05 19:19 | NUR ---
TASK RN: 17GA PIV PLACED TO RIGHT FOREARM. PRIMARY RN JANNET MADE AWARE
--- NOTE | 2021-02-05 19:30 | NUR ---
PT RECEIEVED US GUIDED IV RIGHT FOREARM 18G AND BLOOD DRAW FOR BLOOD TYPE.
[2021-02-05 20:37] VITALS: BP 130/72
--- NOTE | 2021-02-05 21:13 | NUR ---
Patient given discharge instructions and they have confirmed that they understand the instructions. Patient ambulatory with steady gait. No questions at time of discharge.
== END 2021-02-05 21:26 | disposition home or self-care (01) ==
LOC: ED 21:24
DX: K92.1 Melena (principal); K92.2 Gastrointestinal hemorrhage, unspecified; R94.31 Abnormal electrocardiogram [ECG] [EKG]; Z85.3 Personal history of malignant neoplasm of breast
CPT/HCPCS: 36415; 80048; 82040; 85025; 85610; 85730; 86850; 86900; 93005; 99284